=== PATIENT | female | born 1990 | race Caucasian/White ===

== ENCOUNTER 2017-02-23 23:59 | Emergency (ER) | payer OTHER ==
--- NOTE | ~2017-02-23 | CT2 ---
[facility] A Service [facility][1] RADIOLOGY TEXT RESULTS PATIENT: SUSI GUARDADO LOCATION: SED : 89 UNIT #: [id number] AGE: [address]: Carson Marsh MD SEX: F ORDER DR: [id number] [place] [id number] E MR#: [id number] Acc #: [id number] NAME: SUSI GUARDADO : 1990 SEX: F STUDY DATE/TIME: 02/24/2017 2:32 UNIT: SED ROOM: STUDY DESCRIPTION: CT Abd and Pelv W Cont Attending Physician: Carson Marsh M.D. Ordering Physician: Carson Marsh M.D. Primary Care Physician: Sedrick Moreno M.D. MEDICAL IMAGING REPORT This report is preliminary unless electronic signature is present. EXAM CT abdomen and pelvis with contrast INDICATIONS Epigastric pain for 2 hours. COMPARISON 03/18/15 TECHNIQUE The patient was given 100 mL Isovue-370 and also oral contrast and axial 5-mm images were obtained through the abdomen and pelvis. Sagittal and coronal reconstructions were generated. This CT exam was performed with one or more of the following radiation dose reduction techniques: Automatic exposure control, adjustment of mA and/or kV according to patient size, and iterative reconstruction. FINDINGS There is a healed right rib fracture on the first image of the study; the bones are otherwise normal. The liver contains a couple small cysts measuring up to 15 mm in diameter. The gallbladder has been removed. The spleen, pancreas, adrenal glands and kidneys are normal. The aorta is normal in size and there is no adenopathy. The bowel is normal. The uterus and adnexal regions and bladder are normal. The bones are unremarkable. IMPRESSION 1. Prior cholecystectomy. 2. Incidental hepatic cysts. 3. Otherwise, normal. [facility] A Service [facility][1] RADIOLOGY TEXT RESULTS PATIENT: SUSI GUARDADO LOCATION: SED : 91 UNIT #: [id number] AGE: [address]: Carson Marsh MD SEX: F ORDER DR: Dictated by... Tyrone Henley M.D. THIS IS AN ELECTRONICALLY VERIFIED REPORT Tyrone Henley M.D. at 02/24/2017 1:39 PM FEL/psc TD: 02/24/2017 03:33 JOB #: [id number] MEDICAL IMAGING REPORT Page 1 of 1
[~2017-02-23 23:59] MED LIST: ALBUTEROL17 GM INH; BENZONATATE PO; NO MEDICATIONS; PREDNISONE PO; PREDNISONE50 MG PO; PRILOSEC20 M1 PO; TUSSIGON PO; ZITHROMAX PO
[2017-02-24] MEDS ORDERED: NO MEDICATIONS (00:05)
[2017-02-24 00:47] LABS: BASOPHIL% 0.4 % (0-2.5); EOSINOPHIL# 0.1 X10e3 (0-0.7); EOSINOPHIL% 0.8 % (0.0-7.0); HEMATOCRIT 41.4 % (35.0-45.0); HEMOGLOBIN 13.6 gm/dL (12.0-16.0); LYMPHOCYTE# 2.2 X10e3 (1.0-3.5); LYMPHOCYTE% 29.1 % (17.0-45.0); MEAN CELL VOLUME 84.8 FL (83-96); MEAN CORPUSCULAR HEMOGLOBIN 27.9 PG (28-34); MEAN CORPUSCULAR HGB CONC 32.9 g/dL (30-36); MEAN PLATELET VOLUME 10.5 FL (6.5-11.5); MONOCYTE# 0.5 X10e3 (0-1.0); MONOCYTE% 7.2 % (3.0-12.0); NEUTROPHIL# 4.7 X10e3 (1.5-7.1); NEUTROPHIL% 62.5 % (40-75); PLATELET COUNT 162 X10e3 (140-420); RED BLOOD COUNT 4.88 X10e (3.90-5.30); RED CELL DISTRIBUTION WIDTH 12.3 % (11.0-15.5); WHITE BLOOD COUNT 7.6 X10e3 (4.0-10.5)
[2017-02-24 00:48] LABS: DIFF IND NO
[2017-02-24 00:49] LABS: URINE SOURCE CLEAN CATCH
[2017-02-24 00:53] LABS: URINE APPEARANCE CLEAR; URINE BILIRUBIN NEG (NEG); URINE BLOOD 3+ (NEG); URINE COLOR YELLOW; URINE GLUCOSE NEG (NORM); URINE KETONE NEG (NEG); URINE LEUKOCYTE ESTERASE 1+ (NEG); URINE NITRATE NEG (NEG); URINE PH 7.5 (5-8); URINE PROTEIN TRACE (NEG); URINE SPECIFIC GRAVITY 1.015 (1.003-1.035)
[2017-02-24 00:55] LABS: MICRO INDICATED? YES
[2017-02-24 00:56] LABS: URINE BACTERIA NEG (NEG); URINE RBC 25-50 /[HPF] (0-2)
[2017-02-24 00:57] LABS: CULTURE INDICATED? NO; URINE MUCUS PRESENT; URINE SQUAMOUS EPITHELIAL CELL OCCAS /[HPF]
[2017-02-24 01:08] LABS: ALBUMIN SERUM 4.4 g/dL (3.5-5.0); BILIRUBIN, DIRECT 0.1 mg/dL (0.0-0.2); BILIRUBIN,INDIRECT 0.6 mg/dL (0.0-0.9); BILIRUBIN,TOTAL 0.7 mg/dL (0.2-2.0); BUN/CREATININE RATIO 21.42; CALCIUM SERUM 8.9 mg/dL (8.4-10.2); CREATININE SERUM 0.7 mg/dL (0.6-1.4); GLOM FILT RATE Estimated 120.4 mL/min (>60); PROTEIN TOTAL SERUM 7.8 g/dL (6.0-8.3)
[2017-02-24 01:10] LABS: POTASSIUM 2.9 mmol/L (3.5-5.1)
== END 2017-02-24 03:56 | disposition home or self-care (01) ==
LOC: SED 23:59
PROVIDERS: Emergency Medicine
DX: R10.11 Right upper quadrant pain (principal); R11.2 Nausea with vomiting, unspecified; J45.909 Unspecified asthma, uncomplicated; Z90.49 Acquired absence of other specified parts of digestive tract; F17.200 Nicotine dependence, unspecified, uncomplicated; Z88.8 Allergy status to other drugs, medicaments and biological substances
CPT/HCPCS: 36415; 74177; 80048; 80076; 81003; 82150; 83690; 84703; 85025; 96361; 96374; 96375; 96376; 99284; J1170; J2405; J2550; Q9967